=== PATIENT | female | born 1960 | race Caucasian/White ===

== ENCOUNTER 2016-04-07 08:15 | Emergency (ER) | payer OTHER ==
[~2016-04-07] VITALS: Ht 152.4 cm; Wt 94.5 kg
[~2016-04-07 08:15] MED LIST: ALLEGRA ALLERG180 MG PO; IBU800 M1 PO; LEVAQUIN 750MG750 M1 PO; MUCINEX D1 TER PO; NASONEX SPRAY17 GM NS; NEXIUM 40MG40 MG PO; NORCO 325 MG-51 TAB PO; POTASSIUM GLUC550 MG PO; PREDNISONE20 MG PO; PROAIR HFA0.09 MG/AC IH; VOLTAREN GEL 1%1 TU TP; ZITHROMAX TRI-500 MG PO; ZYRTEC ALLERGY10 MG PO; [UNRECOGNIZED DRUG - OTHER]
[2016-04-07 08:19] VITALS: BP 148/72; TEMP 97.9
[2016-04-07] MEDS ORDERED: PREDNISONE20 MG PO (09:30)
[2016-04-07 09:48] VITALS: PULSE 86
== END 2016-04-07 09:42 | disposition home or self-care (01) ==
LOC: COL.ER 08:15
DX: J45.901 Unspecified asthma with (acute) exacerbation (principal)

== ENCOUNTER → 2016-04-18 | Outpatient (REF) ==
[~2016-04-18] MED LIST changes: +DOXYCYCLINE HY100 MG PO; +MOTRIN 800800 MG/TAB PO; +PROTONIX 40MG T40 MG PO; +REFRESH PLUS 00.4 M1 OP
== END ==
LOC: WSOH 11:07
DX: Z02.89 Encounter for other administrative examinations (principal)

== ENCOUNTER 2016-05-03 23:30 | Emergency (ER) | payer OTHER ==
[~2016-05-03] VITALS: Ht 152.4 cm; Wt 95.9 kg
[~2016-05-03 23:30] MED LIST changes: -DOXYCYCLINE HY100 MG PO; -MOTRIN 800800 MG/TAB PO; -PROTONIX 40MG T40 MG PO; -REFRESH PLUS 00.4 M1 OP
[2016-05-03 23:43] VITALS: TEMP 98
[2016-05-04] MEDS ORDERED: DOXYCYCLINE HY100 MG PO (02:07)
[2016-05-04] MEDS ORDERED: PREDNISONE20 MG PO (02:07)
[2016-05-04 02:17] VITALS: BP 123/48; PULSE 67
== END 2016-05-04 02:18 | disposition home or self-care (01) ==
LOC: COL.ER 23:30
DX: J45.901 Unspecified asthma with (acute) exacerbation (principal); J32.9 Chronic sinusitis, unspecified
CPT/HCPCS: J1885; J2550; J7512

== ENCOUNTER 2016-10-21 11:06 | Day surgery (SDC) | payer OTHER ==
[~2016-10-21] VITALS: Ht 152.4 cm; Wt 96.8 kg
[~2016-10-21 11:06] MED LIST changes: +DOXYCYCLINE HY100 MG PO
[2016-10-21 12:01] VITALS: BP 125/71; PULSE 71; TEMP 98.1
[2016-10-21] MEDS ORDERED: MOTRIN 800800 MG/TAB PO (12:12)
[2016-10-21] MEDS ORDERED: PROTONIX 40MG T40 MG PO (12:12)
[2016-10-21] MEDS ORDERED: PREDNISONE20 MG PO (12:12)
[2016-10-21] MEDS ORDERED: REFRESH PLUS 00.4 M1 OP (12:13)
[2016-10-21 13:13] VITALS: BP 98/51; PULSE 85; TEMP 98.8
[2016-10-21 13:28] VITALS: BP 120/45; PULSE 92
[2016-10-21 13:43] VITALS: BP 122/60; PULSE 90
[2016-10-21 13:58] VITALS: BP 120/47; PULSE 82
== END 2016-10-21 14:28 | disposition home or self-care (01) ==
LOC: SDCO 11:06
DX: J47.1 Bronchiectasis with (acute) exacerbation (principal); J45.909 Unspecified asthma, uncomplicated; M19.90 Unspecified osteoarthritis, unspecified site; M72.2 Plantar fascial fibromatosis; J32.9 Chronic sinusitis, unspecified; G47.33 Obstructive sleep apnea (adult) (pediatric); K44.9 Diaphragmatic hernia without obstruction or gangrene; K21.9 Gastro-esophageal reflux disease without esophagitis; R06.02 Shortness of breath; Z83.3 Family history of diabetes mellitus; Z98.51 Tubal ligation status; Z82.49 Family history of ischemic heart disease and other diseases of the circulatory system; Z80.9 Family history of malignant neoplasm, unspecified; Z96.7 Presence of other bone and tendon implants; Z90.710 Acquired absence of both cervix and uterus; Z86.2 Personal history of diseases of the blood and blood-forming organs and certain disorders involving the immune mechanism
CPT/HCPCS: J2704; J7030